=== PATIENT | female | born 1985 | race Caucasian/White ===

== ENCOUNTER 2016-11-18 08:26 | Inpatient (IN) | payer BC ==
[~2016-11-18] VITALS: Ht 162.6 cm; Wt 80.0 kg
[2016-11-18 09:52] VITALS: BP 133/85
[2016-11-18] MEDS ORDERED: PREN-3 PO (10:05)
[2016-11-18] MEDS ORDERED: OMEP20TA62 PO (10:06)
[2016-11-18] MEDS ORDERED: DOCO100C PO (10:06)
[2016-11-18] MEDS ORDERED: LORA-702 PO (10:06)
[2016-11-18 11:01] LABS: PATH.CAST-FLAG NOT PRESENT; SPERM-FLAG NOT PRESENT; SRC-FLAG NOT PRESENT; XTAL-FLAG NOT PRESENT; YLC-FLAG NOT PRESENT
[2016-11-18] MEDS ORDERED: D5%-LACTATED RINGERS 1,000 ML IV SCH (15:44)
[2016-11-18] MEDS ORDERED: OXYTOCIN 30U/ 0.9% NaCL 500ML 500 ML IV ONE (15:44)
[2016-11-18] MEDS ORDERED: NEWBORN KIT ONE (15:50)
[2016-11-18] MEDS ORDERED: LIDOCAINE 1%, 20ML ONE (15:50)
[2016-11-18] MEDS ORDERED: MISOPROSTOL 200 MCG TABLET ONE (15:51)
[2016-11-18] MEDS ORDERED: OXYTOCIN 30U/ 0.9% NaCL 500ML 500 ML ONE ×2 (15:51→23:26)
[2016-11-18] MEDS ORDERED: ONDANSETRON 2MG/ML, 2ML ONE (15:51)
[2016-11-18] MEDS ORDERED: ONDANSETRON 2MG/ML, 2ML IVPush PRN (16:00)
[2016-11-18] MEDS ORDERED: CALCIUM CARBONATE 500 MG TAB.CHEW PO PRN (16:00)
[2016-11-18] MEDS: LACTATED RINGERS 1,000 ML IV SCH ×2 (16:06→18:00)
[2016-11-18 16:09] LABS: HEMATOCRIT 39.9 % (34.6-47.8); HEMOGLOBIN 13.8 g/dL (11.7-16.4)
[2016-11-18] MEDS ORDERED: FENTANYL PF 100 MCG/2ML ONE ×2 (16:12→17:27)
[2016-11-18] MEDS: FENTANYL PF 100 MCG/2ML IVPush PRN ×2 (16:13→17:29)
[2016-11-18] MEDS ORDERED: FENTANYL/BUPIV./NS/PF 250 ML EPIDCONT ONE (18:14)
[2016-11-18] MEDS ORDERED: LIDOCAINE/PF 1.5%-EPI 1:200K, 30ML ONE (18:15)
[2016-11-18] MEDS ORDERED: FENTANYL/BUPIV./NS/PF 250 ML EPIDCONT SCH (18:44)
[2016-11-18] MEDS ORDERED: LACTATED RINGERS 1,000 ML IV SCH (18:44)
[2016-11-18] MEDS ORDERED: LACTATED RINGERS 1,000 ML IVBOLUS PRN (19:00)
[2016-11-18] MEDS ORDERED: OXYTOCIN 30U/ 0.9% NaCL 500ML 500 ML IV PRN (19:54)
[2016-11-18] MEDS ORDERED: METOCLOPRAMIDE 5 MG/ML, 2ML ONE (20:45)
[2016-11-18] MEDS ORDERED: METOCLOPRAMIDE 5 MG/ML, 2ML IVPush ONE (21:00)
[2016-11-18] MEDS ORDERED: CALCIUM CARBONATE 500 MG TAB.CHEW ONE (22:16)
[2016-11-18] MEDS: OXYTOCIN 30U/ 0.9% NaCL 500ML 500 ML IV SCH ×2 (22:54→23:32)
[2016-11-18] MEDS ORDERED: OXYcodone/APAP 5/325MG TABLET PO PRN ×2 (23:00)
[2016-11-18] MEDS ORDERED: DOCUSATE 100 MG CAPSULE PO PRN (23:00)
[2016-11-18] MEDS ORDERED: MISOPROSTOL 200 MCG TABLET PR PRN (23:00)
[2016-11-18] MEDS ORDERED: ONDANSETRON 2MG/ML, 2ML IV PRN (23:00)
[2016-11-18] MEDS ORDERED: IBUPROFEN 600 MG TABLET ONE (23:26)
[2016-11-18] MEDS: IBUPROFEN 600 MG TABLET PO PRN (23:28)
[2016-11-19] VITALS (7 sets, daily range): BP systolic 102–118; BP diastolic 54–74
[2016-11-19] MEDS: OXYTOCIN 30U/ 0.9% NaCL 500ML 500 ML IV SCH ×21 (00:20→23:29)
[2016-11-19 07:15] LABS: HEMATOCRIT 32.7 % (34.6-47.8); HEMOGLOBIN 11.2 g/dL (11.7-16.4); WHITE BLOOD COUNT 17.1 x10^3/uL (3.4-10)
[2016-11-19] MEDS: IBUPROFEN 600 MG TABLET PO PRN ×2 (08:58→16:11)
[2016-11-19] MEDS: PRENATAL VIT/IRON/FA 1 EACH TABLET PO SCH (09:00)
[2016-11-19] MEDS ORDERED: MEASLES,MUMPS&RUBELLA VACC/PF 0.5 ML SQ-VACC ONE (17:00)
[2016-11-20] MEDS: IBUPROFEN 600 MG TABLET PO PRN (04:53)
[2016-11-20] MEDS ORDERED: IBUP-1222 PO (07:19)
[2016-11-20] MEDS: PRENATAL VIT/IRON/FA 1 EACH TABLET PO SCH (07:29)
== END 2016-11-20 11:20 | disposition home or self-care (01) | DRG 774 ==
LOC: LDOP 08:26 → LDIP 15:40 → 2NW 11-19 01:05
PROVIDERS: ADMIT Obstetrics & Gynecology; ATTEND Obstetrics & Gynecology
PROC: 10E0XZZ Delivery of Products of Conception, External Approach (ICD-10-PCS; principal; 2016-11-18)
PROC: 0KQM0ZZ Repair Perineum Muscle, Open Approach (ICD-10-PCS; 2016-11-18)
PROC: 3E0S3CZ (ICD-10-PCS; 2016-11-18)
PROC: 00HU33Z Insertion of Infusion Device into Spinal Canal, Percutaneous Approach (ICD-10-PCS; 2016-11-18)
DX: O76 Abnormality in fetal heart rate and rhythm complicating labor and delivery (principal); O99.42 Diseases of the circulatory system complicating childbirth; I34.1 Nonrheumatic mitral (valve) prolapse; G43.909 Migraine, unspecified, not intractable, without status migrainosus; O70.1 Second degree perineal laceration during delivery; O75.89 Other specified complications of labor and delivery; Z3A.40 40 weeks gestation of pregnancy; Z37.0 Single live birth; Z23 Encounter for immunization
CPT/HCPCS: 36415; 81001; 85025; 86850; 86900; 87086; J2405; J3010; J2590; J7120